=== PATIENT | male | born 1940 | race Caucasian/White ===

== ENCOUNTER → 2020-06-06 07:57 | Outpatient (CLI) | payer MEDICARE, SELFPAY ==
[2020-06-06] MEDS: COVID-19 VACC, Ad26(JANSSEN)/PF 0.5 ML IM (08:05)
== END ==
PROVIDERS: Visit Provider Internal Medicine
DX: Z23 Encounter for immunization (principal)
CPT/HCPCS: 0031A; 91303

== ENCOUNTER → 2021-10-16 15:22 | Outpatient (CLI) | payer MEDICARE, SELFPAY ==
[2021-10-16 16:03] LABS: Add Manual Diff / Slide Review NO; Basophils Absolute Auto 0 /uL (0-100); Basophils Percent Auto 0.7 % (0-2); Eosinophils Absolute Auto 200 /uL (0-450); Hematocrit 42.7 % (41-53); Hemoglobin 14.3 g/dL (13.5-17.5); Lymphocytes Absolute Auto 1800 /uL (1100-4500); Lymphocytes Percent Auto 32.2 % (25-40); Mean Corpuscular HGB Conc 33.6 % (30-36); Mean Corpuscular Hemoglobin 31.5 PG (26-34); Mean Corpuscular Volume 93.9 fL (80-100); Monocytes Absolute Auto 400 /uL (0-900); Monocytes Percent Auto 6.7 % (3-14); Neutrophils Absolute Auto 3200 /uL (1500-7000); Neutrophils Percent Auto 57.4 % (50-75); Platelet Count 232 X10^3/uL (150-400); Red Blood Cell Count 4.55 X10^6/uL (4.5-5.9); Red Cell Distribution Width 14.9 % (11.6-14.8); White Blood Cell Count 5.6 X10^3/uL (4.5-11.0)
[2021-10-16 16:10] LABS: Alanine Aminotransferase 24 IU/L (<50); Albumin 4.6 g/dL (3.5-5.0); Albumin Globulin Ratio 1.5 (1.0-2.8); Alkaline Phosphatase 77 U/L (38-126); Aspartate Aminotransferase 41 IU/L (17-59); BUN Creatinine Ratio 18.8 (6-22); Bilirubin Total 0.5 mg/dL (0.2-1.3); Blood Urea Nitrogen 18 mg/dL (9-20); Calcium 9.2 mg/dL (8.4-10.2); Carbon Dioxide 27 mmol/L (22-32); Chloride 104 mmol/L (98-107); Estimated Glomerular Filt Rate > 60 mL/min (>60); Globulin 3.1 g/dL (1.7-4.1); Glucose 92 mg/dL (80-110); HEMOLYSIS 19 (0-50); Potassium 4.6 mmol/L (3.4-5.1); Sodium 137 mmol/L (137-145); Total Protein 7.7 g/dL (6.3-8.2)
[2021-10-16 16:40] LABS: TSH w/ Reflex to FT4 1.76 uIU/mL (0.47-4.68)
== END ==
PROVIDERS: Referring Provider Pediatrics; Visit Provider Pediatrics
DX: I49.9 Cardiac arrhythmia, unspecified (principal); R25.2 Cramp and spasm
CPT/HCPCS: 36415; 80053; 83735; 84443; 85025; 93005; 93010

== ENCOUNTER → 2021-10-29 15:14 | Outpatient (CLI) | payer MEDICARE, SELFPAY ==
--- NOTE | 2021-11-12 08:53 | PM.CARDMON.1 ---
[employer] Report Referral & Results Date Patient Seen: 10/29/21 Requesting provider: Jose Manuel Izquierdo Indication: Cardiac arrhythmia Duration of monitoring (days): 7 Diary information: There were no patient events to review Data: Patient was continuously in atrial fibrillation during this study Minimum heart rate identified was 57 beats per minute at 23:07 on 10/29/2021 Maximum heart rate was 173 beats per minute at 12:02 on 10/30/2021 Approximately 1% of identified beats were ventricular ectopic in origin which would classify them as occasional There were no pauses of 3 seconds or longer identified on this study Impression: Patient continuously in atrial fibrillation with heart rate ranges as above
== END ==
PROVIDERS: Referring Provider Pediatrics; Visit Provider Pediatrics
DX: I49.9 Cardiac arrhythmia, unspecified (principal)
CPT/HCPCS: 93242; 93248

== ENCOUNTER → 2022-04-21 07:00 | Outpatient (CLI) | payer MEDICARE, SELFPAY ==
--- NOTE | 2022-04-21 07:02 | DI.ECHO.S_ITS ---
[place] +---------+ [facility] +---------+ : : [address] : : : : [id number] : : : : Phone: [phone]+ Echocardiogram Report + + :Name: GARTH LEBRON Study Date: 04/21/2022 Height: 70 in : :[facility] ReadingLocation: Weight: 180 lb : : Gender: Male BSA: 2.0 m2 : :: 1940 Age: 81 yrs BP: 122/90 mmHg: :Reason For Study: ATRIAL FIBRILLATION : :Ordering Physician: JUDY, : :SHAHID Performed By: Elena Mary : :Referring: FADI CORONEL : + + Interpretation Summary 1) Normal left ventricular size and thickness with mildly to moderately reduced systolic function (EF 40-45%). 2) Normal right ventricular size with mildly reduced function. 3) Mild aortic and mild mitral regurgitations present. 4) No prior Echo available for comparison. Procedure: A two-dimensional transthoracic echocardiogram with color flow and Doppler was performed. The study quality was technically adequate. There is no prior echocardiogram noted for this patient. The patient was in sinus rhythm with heart rates between 79-97 bpm during the exam. Left Ventricle: The left ventricle is normal in size and wall thickness. The ejection fraction is estimated to be 40-45%. There is mild to moderate global hypokinesis of the left ventricle. Diastolic function could not be accurately assessed due to atrial fibrillation. Right Ventricle: The right ventricle is normal size. Right ventricular systolic function is mildly reduced. Atria: The left atrium is moderately dilated. The right atrium is mild to moderately dilated. There is no Doppler evidence for an interatrial shunt. Mitral Valve: The mitral valve is normal in structure and function. There is mild mitral regurgitation. Aortic Valve: The aortic valve is trileaflet. The aortic valve opens well. There is no aortic valve stenosis. There is mild aortic regurgitation. Tricuspid Valve: The tricuspid valve is normal in structure and function. There is mild tricuspid regurgitation. The right ventricular systolic pressure is estimated to be at least 28 mmHg based on an estimated right atrial pressure of 8 mm Hg. Pulmonic Valve: The pulmonic valve leaflets are thin and pliable; valve motion is normal. There is trace pulmonic regurgitation. Great Vessels: The aortic root is normal size. The ascending aorta is at the upper limits of normal in size. The IVC is dilated (diameter is greater than 2.1 cm) yet it collapses greater than 50% with a sniff. This suggests a right atrial pressure of 8 mm Hg. Pericardium/ Pleura There is no pericardial effusion. There is no pleural effusion. MMode/2D Measurements & Calculations LVIDd: 4.6 cm LVOT diam: 2.0 cm LVIDs: 3.4 cm Ao root diam: 3.8 cm FS: 26.8 % asc Aorta Diam: 3.7 cm IVSd: 0.75 cm Ao Arch Diam (Prox Trans): 3.5 cm LVPWd: 0.96 cm LV goel. diameter/BSA (cm/m^2): 2.3 LV sys. diameter/BSA (cm/m^2): 1.7 LA A2 area: 24.0 cm2 RA long axis: 7.1 cm LA A4 area: 27.8 cm2 RA area: 26.6 cm2 LA length (vol): 6.5 cm RA vol: 84.9 ml LA vol: 87.1 ml RA : 42.5 ml/m2 LA vol index: 43.7 ml/m2 IVC diam: 2.2 cm RVD1 (basal): 3.8 cm RVD2 (mid): 2.8 cm TAPSE: 2.1 cm Doppler Measurements & Calculations Ao V2 max: 84.2 cm/sec LVOT Max Cirilo: 86.8 cm/sec Ao V2 mean: 65.2 cm/sec LV V1 max P.0 mmHg Ao max P.8 mmHg LV V1 VTI: 15.8 cm Ao mean P.8 mmHg PIOTR(I,D): 2.8 cm2 Ao V2 VTI: 17.1 cm PIOTR(V,D): 3.2 cm2 sev ratio: 0.92 PIOTR indexed to BSA (cm^2/m^2): 1.4 Med Peak E' Cirilo: 10.7 cm/sec TR max cirilo: 225.5 cm/sec Lat Peak E' Cirilo: 12.1 cm/sec TR max P.3 mmHg PA V2 max: 77.9 cm/sec PA V2 mean: 51.8 cm/sec PA mean P.2 mmHg PA pr(Accel): 46.5 mmHg SV(LVOT): 48.6 ml Reading Physician:10:08 AM
== END ==
PROVIDERS: PCP Family Medicine; Referring Provider Internal Medicine Cardiovascular Disease; Visit Provider Internal Medicine Cardiovascular Disease
DX: I08.3 Combined rheumatic disorders of mitral, aortic and tricuspid valves (principal); I48.19 Other persistent atrial fibrillation
CPT/HCPCS: 93306

== ENCOUNTER → 2022-05-28 14:29 | Outpatient (CLI) | payer MEDICARE, SELFPAY ==
[2022-05-28 15:18] LABS: Add Manual Diff / Slide Review NO; Basophils Absolute Auto 0 /uL (0-100); Basophils Percent Auto 0.7 % (0-2); Eosinophils Absolute Auto 100 /uL (0-450); Eosinophils Percent Auto 1.8 % (2-4); Hematocrit 40.7 % (41-53); Hemoglobin 13.7 g/dL (13.5-17.5); Lymphocytes Absolute Auto 1900 /uL (1100-4500); Lymphocytes Percent Auto 28.4 % (25-40); Mean Corpuscular HGB Conc 33.7 % (30-36); Mean Corpuscular Volume 92.1 fL (80-100); Monocytes Absolute Auto 600 /uL (0-900); Monocytes Percent Auto 9.3 % (3-14); Neutrophils Absolute Auto 4000 /uL (1500-7000); Neutrophils Percent Auto 59.8 % (50-75); Platelet Count 333 X10^3/uL (150-400); Red Blood Cell Count 4.43 X10^6/uL (4.5-5.9); Red Cell Distribution Width 14.1 % (11.6-14.8); White Blood Cell Count 6.7 X10^3/uL (4.5-11.0)
== END ==
PROVIDERS: PCP Family Medicine; Referring Provider Internal Medicine Cardiovascular Disease; Visit Provider Internal Medicine Cardiovascular Disease
DX: I48.19 Other persistent atrial fibrillation (principal)
CPT/HCPCS: 36415; 85025

== ENCOUNTER 2022-09-26 13:06 | Emergency (ER) | payer MEDICARE, SELFPAY ==
[2022-09-26] VITALS (17 sets, daily range): BP systolic 103–147; BP diastolic 61–82; PULSE 97–125; RESP 16–31; TEMP 36.9; O2SAT 98–99; BMI 23.8
[2022-09-26 14:07] LABS: Add Manual Diff / Slide Review NO; Basophils Absolute Auto 0 /uL (0-100); Basophils Percent Auto 0.4 % (0-2); Eosinophils Absolute Auto 0 /uL (0-450); Eosinophils Percent Auto 0.2 % (2-4); Hematocrit 35.9 % (41-53); Hemoglobin 12.2 g/dL (13.5-17.5); Lymphocytes Absolute Auto 800 /uL (1100-4500); Lymphocytes Percent Auto 7.9 % (25-40); Mean Corpuscular Volume 82.4 fL (80-100); Monocytes Absolute Auto 500 /uL (0-900); Monocytes Percent Auto 5.4 % (3-14); Neutrophils Absolute Auto 8200 /uL (1500-7000); Neutrophils Percent Auto 86.1 % (50-75); Platelet Count 414 X10^3/uL (150-400); Red Blood Cell Count 4.36 X10^6/uL (4.5-5.9); Red Cell Distribution Width 16.4 % (11.6-14.8); White Blood Cell Count 9.5 X10^3/uL (4.5-11.0)
--- NOTE | 2022-09-26 14:07 | DI.US.S_ITS ---
PROCEDURE: US ABDOMEN LIMITED INDICATIONS: RUQ PAIN; JAUNDICE TECHNIQUE: Real-time scanning was performed of the abdominal and retroperitoneal organs, with image documentation. COMPARISON: Same-day CT. FINDINGS: Liver: Live mass along the gallbladder fossa measuring 4.5 x 3.6 x 4.6 cm. This may be rising from the liver or gallbladder. Gallbladder: Mass, as above. Biliary ducts: Intrahepatic and extrahepatic biliary dilation. Numerous stones within the common bile duct. Pancreas: Ductal dilation measuring 4 mm. IMPRESSION: Liver mass versus gallbladder mass measuring 4.5 x 3.6 x 4.6 cm. Choledocholithiasis and intrahepatic and extrahepatic biliary dilation. Dictated by: Doug Fitch M.D. on 09/26/2022 at 16:10 Approved by: Doug Fitch M.D. on 09/26/2022 at 16:13
--- NOTE | 2022-09-26 14:10 | ED.GENADULT ---
HPI - General Adult <Cirilo Mendoza DO - Last Filed: 09/27/22 08:21> General Chief complaint: Abdominal Pain Stated complaint: abd pain, gastro issues Time Seen by Provider: 09/26/22 13:31 Source: patient and other Mode of arrival: Wheelchair History of Present Illness HPI narrative: Patient is an 82-year-old male has a history of atrial fibrillation. Is on metoprolol rivaroxaban. He is here with a friend of his. Over the past couple days he has had generalized abdominal pain and nausea. No vomiting. He is also had multiple bowel movements 1 of which was diarrhea. No recent travel. He currently is not having any nausea. No chest pain or shortness of breath. His friend states that over the past couple days she is noticed increasing discoloration to his face equivalent with jaundice. It was much worse this morning. No prior abdominal surgeries. No prior history of liver kidney issues. Went to the walk-in clinic and was sent to the emergency department for further evaluation. Related Data Home Medications Medication Instructions Recorded Confirmed rivaroxaban 20 mg tablet (Xarelto) 20 mg PO DAILY 04/24/22 09/26/22 metoprolol succinate 100 mg 100 mg PO DAILY 09/26/22 09/26/22 tablet,extended release 24 hr Allergies Allergy/AdvReac Type Severity Reaction Status Date / Time grass pollen AdvReac Mild Verified 09/26/22 13:39 mold AdvReac Mild eye Verified 09/26/22 13:39 irritation tree and shrub pollen AdvReac Mild Verified 09/26/22 13:39 Review of Systems <Cirilo Mendoza DO - Last Filed: 09/27/22 08:21> Review of Systems ROS Unobtainable: All systems reviewed & are unremarkable except as noted in HPI and below Gastrointestinal Gastrointestinal: Reports system reviewed and no additional complaints, except as documented Patient History <Cirilo Mendoza DO - Last Filed: 09/27/22 08:21> Medical History Acne Allergies (~1949) Benign prostatic hyperplasia Cardiac rhythm disturbance (~2021) Chicken pox (~1951) Chronic atrial fibrillation Diverticulosis Hemorrhoid (~2019) Leg cramps Measles (~1951) Migraines Mumps (~1951) Plantar warts (~1969) Rubella (~1951) Wears glasses Surgical History Anesthesia History of inguinal hernia repair History of tonsillectomy (~1950) Family History Father Cancer History of heart disease Mother Sepsis Pneumonia Grandfather Influenza Social History Smoking Status: Never smoker Smoking Status: Never smoker Substance Use Type: does not use Exam <DO Jacob Tierney Last Filed: 09/27/22 08:21> Initial Vital Signs Initial Vital Signs: Vital Signs Temperature 98.5 F 09/26/22 13:40 Pulse Rate 112 H 09/26/22 13:40 Respiratory Rate 16 09/26/22 13:40 Blood Pressure 120/76 09/26/22 13:40 Pulse Oximetry 98 09/26/22 13:40 Oxygen Delivery Method Room Air 09/26/22 13:40 Const General: cooperative, comfortable and No ill appearing HENAZ Head: normal to inspection and normocephalic Eyes Other: Scleral icterus Resp Effort & Inspection: normal respiratory effort Auscultation: clear to auscultation bilaterally Cardio Rate: tachycardic Rhythm: abnormal rhythm irregularly irregular GI Inspection: normal to inspection and non-distended Palpation: soft and No tender Skin General: no rashes or lesions noted and jaundice Neuro General: patient alert, patient awake, patient oriented x3 and moves all extremities Cognition: normal cognition Speech: speech normal Extrem General: normal to inspection and capillary refill normal <DO Jacob Brown Last Filed: 09/27/22 06:36> Initial Vital Signs Initial Vital Signs: Vital Signs Temperature 98.5 F 09/26/22 13:40 Pulse Rate 112 H 09/26/22 13:40 Respiratory Rate 16 09/26/22 13:40 Blood Pressure 120/76 09/26/22 13:40 Pulse Oximetry 98 09/26/22 13:40 Oxygen Delivery Method Room Air 09/26/22 13:40 Course <DO Jacob Tierney Last Filed: 09/27/22 08:21> Orders Ordered: ED Orders 09/27/22 03:15 Hemoglobin and Hematocrit DAILY PTT Partial Thromboplastin Guido Q6H Platelet Count DAILY 09/27/22 07:30 PTT Partial Thromboplastin Guido Q6H 09/27/22 14:00 PTT Partial Thromboplastin Guido Q6H 09/28/22 05:00 Hemoglobin and Hematocrit DAILY Platelet Count DAILY Sodium Chloride (Normal Saline 0.9%) 1,000 mls @ 125 mls/hr IV CONT ANGLE Last Admin: 09/27/22 04:48 Dose: 125 mls/hr Documented By: Infusion: 09/27/22 04:48 Dose: 125 mls/hr Documented By: Admin: 09/26/22 21:03 Dose: 125 mls/hr Documented By: MAISHA Heparin Sodium/Dextrose (Heparin Drip) 25,000 unit in 500 mls @ 18.049 mls/hr IV CONT ANGLE; Protocol Last Titration: 09/27/22 08:10 Dose: 9.31 units/kg/hr, 14 mls/hr Documented By: ALBERTO Co-signed By: YU Titration: 09/27/22 04:42 Dose: 7.98 units/kg/hr, 12 mls/hr Documented By: STEPHANIE Co-signed By: MAISHA Titration: 09/27/22 03:40 Dose: 0 units/kg/hr, 0 mls/hr Documented By: STEPHANIE Co-signed By: MAISHA Admin: 09/26/22 21:05 Dose: 12 units/kg/hr, 18.049 mls/hr Documented By: MAISHA Co-signed By: Metoprolol Succinate (Metoprolol Er 50 Mg Tablet) 100 mg PO DAILY [facility] Naloxone HCl (Naloxone 0.4 Mg/Ml Vial) 0.2 mg IV Q2MIN PRN PRN Reason: Opiate Reversal Ondansetron HCl (Ondansetron 4 Mg Odt) 4 mg PO NOW PRN PRN Reason: Nausea And Vomiting Ondansetron HCl (Ondansetron 4 Mg/2 Ml Inj) 4 mg IV NOW PRN PRN Reason: Nausea And Vomiting Discontinued Medications Heparin Sodium (Porcine) (Heparin 5,000 Unit/Ml Vial) 3,000 unit IV NOW ONE Stop: 09/27/22 08:06 Last Admin: 09/27/22 08:08 Dose: 3,000 unit Documented By: ALBERTO Metoprolol Succinate (Metoprolol Er 50 Mg Tablet) 100 mg PO NOW ONE Stop: 09/26/22 17:41 Last Admin: 09/26/22 17:55 Dose: 100 mg Documented By: WICHO Metoprolol Tartrate (Metoprolol Ir 25 Mg Tablet) 50 mg PO NOW ONE Stop: 09/27/22 05:25 Last Admin: 09/27/22 05:31 Dose: 50 mg Documented By: STEPHANIE Metoprolol Tartrate (Metoprolol Tartrate 5 Mg/5 Ml Inj) 5 mg IV NOW ONE Stop: 09/27/22 06:26 Last Admin: 09/27/22 06:32 Dose: 5 mg Documented By: STEPHANIE Vital Signs Vital signs: Vital Signs - 8 hr 09/27/22 02:41 09/27/22 02:41 09/27/22 03:00 Pulse Rate 98 H 109 H Respiratory Rate 20 24 Blood Pressure 117/76 Pulse Oximetry 98 98 Oxygen Delivery Method 09/27/22 03:30 09/27/22 03:30 09/27/22 04:00 Pulse Rate 112 H Respiratory Rate 23 Blood Pressure 112/79 115/72 Pulse Oximetry 97 Oxygen Delivery Method 09/27/22 04:00 09/27/22 04:30 09/27/22 04:30 Pulse Rate 105 H 103 H Respiratory Rate 22 23 Blood Pressure 113/67 Pulse Oximetry 95 95 Oxygen Delivery Method 09/27/22 05:00 09/27/22 05:01 09/27/22 05:30 Pulse Rate 110 H 129 H Respiratory Rate 20 20 Blood Pressure 107/79 Pulse Oximetry 96 97 Oxygen Delivery Method 09/27/22 05:31 09/27/22 05:31 09/27/22 06:12 Pulse Rate 129 H 141 H Respiratory Rate 20 27 H Blood Pressure 157/75 H Pulse Oximetry 98 98 Oxygen Delivery Method Room Air 09/27/22 06:12 09/27/22 06:30 09/27/22 06:30 Pulse Rate 111 H Respiratory Rate 24 Blood Pressure 115/71 103/72 Pulse Oximetry 96 Oxygen Delivery Method 09/27/22 06:36 09/27/22 06:36 09/27/22 06:39 Pulse Rate 111 H 112 H Respiratory Rate 20 18 Blood Pressure 113/73 Pulse Oximetry 96 96 Oxygen Delivery Method 09/27/22 06:39 09/27/22 06:42 09/27/22 06:42 Pulse Rate 100 H Respiratory Rate 20 Blood Pressure 115/78 110/74 Pulse Oximetry 96 Oxygen Delivery Method Room Air 09/27/22 06:45 09/27/22 06:45 09/27/22 06:48 Pulse Rate 104 H 99 H Respiratory Rate 20 20 Blood Pressure 110/68 Pulse Oximetry 96 94 Oxygen Delivery Method 09/27/22 06:48 09/27/22 06:51 09/27/22 06:51 Pulse Rate 100 H Respiratory Rate 22 Blood Pressure 107/73 113/72 Pulse Oximetry 96 Oxygen Delivery Method 09/27/22 07:00 09/27/22 07:15 09/27/22 07:15 Pulse Rate 97 H 94 H Respiratory Rate 19 21 Blood Pressure 110/70 Pulse Oximetry 97 98 Oxygen Delivery Method 09/27/22 07:30 09/27/22 07:30 09/27/22 07:45 Pulse Rate 94 H 89 Respiratory Rate 28 H 20 Blood Pressure 115/73 Pulse Oximetry 98 96 Oxygen Delivery Method 09/27/22 07:45 09/27/22 08:00 09/27/22 08:00 Pulse Rate 91 H Respiratory Rate 23 Blood Pressure 110/72 119/75 Pulse Oximetry 98 Oxygen Delivery Method 09/27/22 08:15 09/27/22 08:15 Pulse Rate 97 H Respiratory Rate 25 H Blood Pressure 116/64 Pulse Oximetry 98 Oxygen Delivery Method <Marlon Mahajan, DO - Last Filed: 09/27/22 06:36> Orders Ordered: ED Orders 09/27/22 03:15 Hemoglobin and Hematocrit DAILY PTT Partial Thromboplastin Guido Q6H Platelet Count DAILY 09/27/22 07:30 PTT Partial Thromboplastin Guido Q6H 09/27/22 14:00 PTT Partial Thromboplastin Guido Q6H 09/28/22 05:00 Hemoglobin and Hematocrit DAILY Platelet Count DAILY Sodium Chloride (Normal Saline 0.9%) 1,000 mls @ 125 mls/hr IV CONT ANGLE Last Admin: 09/27/22 04:48 Dose: 125 mls/hr Documented By: Infusion: 09/27/22 04:48 Dose: 125 mls/hr Documented By: Admin: 09/26/22 21:03 Dose: 125 mls/hr Documented By: MAISHA Heparin Sodium/Dextrose (Heparin Drip) 25,000 unit in 500 mls @ 18.049 mls/hr IV CONT ANGLE; Protocol Last Titration: 09/27/22 08:10 Dose: 9.31 units/kg/hr, 14 mls/hr Documented By: ALBERTO Co-signed By: YU Titration: 09/27/22 04:42 Dose: 7.98 units/kg/hr, 12 mls/hr Documented By: STEPHANIE Co-signed By: MAISHA Titration: 09/27/22 03:40 Dose: 0 units/kg/hr, 0 mls/hr Documented By: STEPHANIE Co-signed By: MAISHA Admin: 09/26/22 21:05 Dose: 12 units/kg/hr, 18.049 mls/hr Documented By: MAISHA Co-signed By: Metoprolol Succinate (Metoprolol Er 50 Mg Tablet) 100 mg PO DAILY ANGLE Naloxone HCl (Naloxone 0.4 Mg/Ml Vial) 0.2 mg IV Q2MIN PRN PRN Reason: Opiate Reversal Ondansetron HCl (Ondansetron 4 Mg Odt) 4 mg PO NOW PRN PRN Reason: Nausea And Vomiting Ondansetron HCl (Ondansetron 4 Mg/2 Ml Inj) 4 mg IV NOW PRN PRN Reason: Nausea And Vomiting Discontinued Medications Heparin Sodium (Porcine) (Heparin 5,000 Unit/Ml Vial) 3,000 unit IV NOW ONE Stop: 09/27/22 08:06 Last Admin: 09/27/22 08:08 Dose: 3,000 unit Documented By: ALBERTO Metoprolol Succinate (Metoprolol Er 50 Mg Tablet) 100 mg PO NOW ONE Stop: 09/26/22 17:41 Last Admin: 09/26/22 17:55 Dose: 100 mg Documented By: WICHO Metoprolol Tartrate (Metoprolol Ir 25 Mg Tablet) 50 mg PO NOW ONE Stop: 09/27/22 05:25 Last Admin: 09/27/22 05:31 Dose: 50 mg Documented By: STEPHANIE Metoprolol Tartrate (Metoprolol Tartrate 5 Mg/5 Ml Inj) 5 mg IV NOW ONE Stop: 09/27/22 06:26 Last Admin: 09/27/22 06:32 Dose: 5 mg Documented By: STEPHANIE Vital Signs Vital signs: Vital Signs - 8 hr 09/27/22 02:41 09/27/22 02:41 09/27/22 03:00 Pulse Rate 98 H 109 H Respiratory Rate 20 24 Blood Pressure 117/76 Pulse Oximetry 98 98 Oxygen Delivery Method 09/27/22 03:30 09/27/22 03:30 09/27/22 04:00 Pulse Rate 112 H Respiratory Rate 23 Blood Pressure 112/79 115/72 Pulse Oximetry 97 Oxygen Delivery Method 09/27/22 04:00 09/27/22 04:30 09/27/22 04:30 Pulse Rate 105 H 103 H Respiratory Rate 22 23 Blood Pressure 113/67 Pulse Oximetry 95 95 Oxygen Delivery Method 09/27/22 05:00 09/27/22 05:01 09/27/22 05:30 Pulse Rate 110 H 129 H Respiratory Rate 20 20 Blood Pressure 107/79 Pulse Oximetry 96 97 Oxygen Delivery Method 09/27/22 05:31 09/27/22 05:31 09/27/22 06:12 Pulse Rate 129 H 141 H Respiratory Rate 20 27 H Blood Pressure 157/75 H Pulse Oximetry 98 98 Oxygen Delivery Method Room Air 09/27/22 06:12 09/27/22 06:30 09/27/22 06:30 Pulse Rate 111 H Respiratory Rate 24 Blood Pressure 115/71 103/72 Pulse Oximetry 96 Oxygen Delivery Method 09/27/22 06:36 09/27/22 06:36 09/27/22 06:39 Pulse Rate 111 H 112 H Respiratory Rate 20 18 Blood Pressure 113/73 Pulse Oximetry 96 96 Oxygen Delivery Method 09/27/22 06:39 09/27/22 06:42 09/27/22 06:42 Pulse Rate 100 H Respiratory Rate 20 Blood Pressure 115/78 110/74 Pulse Oximetry 96 Oxygen Delivery Method Room Air 09/27/22 06:45 09/27/22 06:45 09/27/22 06:48 Pulse Rate 104 H 99 H Respiratory Rate 20 20 Blood Pressure 110/68 Pulse Oximetry 96 94 Oxygen Delivery Method 09/27/22 06:48 09/27/22 06:51 09/27/22 06:51 Pulse Rate 100 H Respiratory Rate 22 Blood Pressure 107/73 113/72 Pulse Oximetry 96 Oxygen Delivery Method 09/27/22 07:00 09/27/22 07:15 09/27/22 07:15 Pulse Rate 97 H 94 H Respiratory Rate 19 21 Blood Pressure 110/70 Pulse Oximetry 97 98 Oxygen Delivery Method 09/27/22 07:30 09/27/22 07:30 09/27/22 07:45 Pulse Rate 94 H 89 Respiratory Rate 28 H 20 Blood Pressure 115/73 Pulse Oximetry 98 96 Oxygen Delivery Method 09/27/22 07:45 09/27/22 08:00 09/27/22 08:00 Pulse Rate 91 H Respiratory Rate 23 Blood Pressure 110/72 119/75 Pulse Oximetry 98 Oxygen Delivery Method 09/27/22 08:15 09/27/22 08:15 Pulse Rate 97 H Respiratory Rate 25 H Blood Pressure 116/64 Pulse Oximetry 98 Oxygen Delivery Method Medical Decision Making <Cirilo Mendoza DO - Last Filed: 09/27/22 08:21> Lab Data Lab results reviewed: Yes I reviewed the patient's lab results. 09/27/22 03:15 09/26/22 13:55 Labs: Lab Results 09/26/22 09/26/22 09/26/22 Range/Units 13:55 13:55 13:55 WBC 9.5 (4.5-11.0) X10^3/uL RBC 4.36 L (4.5-5.9) X10^6/uL Hgb 12.2 L (13.5-17.5) g/dL Hct 35.9 L (41-53) % MCV 82.4 (80-100) fL MCH 28.0 (26-34) PG MCHC 34.0 (30-36) % RDW 16.4 H (11.6-14.8) % Plt Count 414 H (150-400) X10^3/uL Neut % (Auto) 86.1 H (50-75) % Lymph % (Auto) 7.9 L (25-40) % Clinch % (Auto) 5.4 (3-14) % Eos % (Auto) 0.2 L (2-4) % Baso % (Auto) 0.4 (0-2) % Neut # (Auto) 8200 H (0804-2209) /uL Lymph # (Auto) 800 L (5083-1315) /uL Clinch # (Auto) 500 (0-900) /uL Eos # (Auto) 0 (0-450) /uL Baso # (Auto) 0 (0-100) /uL PT 16.6 H (10.1-12.7) SECONDS INR 1.4 H (0.9-1.3) APTT 31 (26-36) SECONDS Sodium 131 L (137-145) mmol/L Potassium 4.0 (3.4-5.1) mmol/L Chloride 95 L (98-107) mmol/L Carbon Dioxide 24 (22-32) mmol/L BUN 19 (9-20) mg/dL Creatinine 0.82 (0.66-1.25) mg/dL Estimated GFR > 60 (>60) mL/min BUN/Creatinine Ratio 23.2 H (6-22) Glucose 92 (80-110) mg/dL Calcium 9.7 (8.4-10.2) mg/dL Total Bilirubin 8.5 H (0.2-1.3) mg/dL Conjugated Bilirubin 5.0 H (0.0-0.3) md/dL Unconjugated Bilirubin 1.1 (0.0-1.1) mg/dL AST 236 H (17-59) IU/L ALT 298 H (<50) IU/L Alkaline Phosphatase 615 H (38-126) U/L Total Protein 8.4 H (6.3-8.2) g/dL Albumin 4.1 (3.5-5.0) g/dL Globulin 4.3 H (1.7-4.1) g/dL Albumin/Globulin Ratio 1.0 (1.0-2.8) Urine Color Urine Appearance Urine pH (4.5-8.0) Ur Specific [place] (1.000-1.035) Urine Protein (Negative) Urine Glucose (UA) (Negative) g/dL Urine Ketones (NEGATIVE) Urine Occult Blood (Negative) Urine Nitrate (Negative) Urine Bilirubin (NEGATIVE) Ur Bilirubin Confirm (Negative) Urine Urobilinogen (0.2) E.U./dL Ur Leukocyte Esterase (NEGATIVE) Urine RBC (0-5/HPF) Urine WBC (0-5/HPF) Ur Squamous Epith Cells (0-5/HPF) Ur Transition Epith Cell (0-5/HPF) Ur Renal Epithelial Cell (0-1/HPF) Amorphous Sediment Urine Bacteria (None) Hyaline Casts (None) Urine Mucus (Negative) Ur Culture Indicated? Acetaminophen (10-30) ug/mL Ethyl Alcohol ( - 10) mg/dL Hepatitis A IgM Ab (Negative) Hep Bs Antigen (Negative) Hep B Core IgM Ab (Negative) Hepatitis C Antibody (Non Reactive) Hep C Ab Signal/Cutoff (.) 09/26/22 09/26/22 09/26/22 Range/Units 13:55 14:25 14:43 WBC (4.5-11.0) X10^3/uL RBC (4.5-5.9) X10^6/uL Hgb (13.5-17.5) g/dL Hct (41-53) % MCV (80-100) fL MCH (26-34) PG MCHC (30-36) % RDW (11.6-14.8) % Plt Count (150-400) X10^3/uL Neut % (Auto) (50-75) % Lymph % (Auto) (25-40) % Clinch % (Auto) (3-14) % Eos % (Auto) (2-4) % Baso % (Auto) (0-2) % Neut # (Auto) (1040-7722) /uL Lymph # (Auto) (7245-7470) /uL Clinch # (Auto) (0-900) /uL Eos # (Auto) (0-450) /uL Baso # (Auto) (0-100) /uL PT (10.1-12.7) SECONDS INR (0.9-1.3) APTT (26-36) SECONDS Sodium (137-145) mmol/L Potassium (3.4-5.1) mmol/L Chloride (98-107) mmol/L Carbon Dioxide (22-32) mmol/L BUN (9-20) mg/dL Creatinine (0.66-1.25) mg/dL Estimated GFR (>60) mL/min BUN/Creatinine Ratio (6-22) Glucose (80-110) mg/dL Calcium (8.4-10.2) mg/dL Total Bilirubin (0.2-1.3) mg/dL Conjugated Bilirubin (0.0-0.3) md/dL Unconjugated Bilirubin (0.0-1.1) mg/dL AST (17-59) IU/L ALT (<50) IU/L Alkaline Phosphatase (38-126) U/L Total Protein (6.3-8.2) g/dL Albumin (3.5-5.0) g/dL Globulin (1.7-4.1) g/dL Albumin/Globulin Ratio (1.0-2.8) Urine Color Brown Urine Appearance Cloudy Urine pH 5.5 (4.5-8.0) Ur Specific [place] 1.025 (1.000-1.035) Urine Protein 2+ H (Negative) Urine Glucose (UA) Trace H (Negative) g/dL Urine Ketones 1+ H (NEGATIVE) Urine Occult Blood Trace-intact (Negative) Urine Nitrate Positive H (Negative) Urine Bilirubin 3+ H (NEGATIVE) Ur Bilirubin Confirm Positive H (Negative) Urine Urobilinogen 2.0 H (0.2) E.U./dL Ur Leukocyte Esterase Negative (NEGATIVE) Urine RBC 1-5/hpf (0-5/HPF) Urine WBC 5-10/hpf H (0-5/HPF) Ur Squamous Epith Cells 5-10 /hpf H (0-5/HPF) Ur Transition Epith Cell 1-5/hpf (0-5/HPF) Ur Renal Epithelial Cell 1-5/hpf H (0-1/HPF) Amorphous Sediment 1+ Urine Bacteria Few (2-10) H (None) Hyaline Casts 1-5/lpf (None) Urine Mucus 3+ H (Negative) Ur Culture Indicated? Specimen cultured Acetaminophen < 10 (10-30) ug/mL Ethyl Alcohol < 10 ( - 10) mg/dL Hepatitis A IgM Ab Negative (Negative) Hep Bs Antigen Negative (Negative) Hep B Core IgM Ab Negative (Negative) Hepatitis C Antibody Non reactive (Non Reactive) Hep C Ab Signal/Cutoff Comment (.) 09/27/22 09/27/22 09/27/22 Range/Units 03:15 03:15 07:30 WBC (4.5-11.0) X10^3/uL RBC (4.5-5.9) X10^6/uL Hgb 11.4 L (13.5-17.5) g/dL Hct 34.3 L (41-53) % MCV (80-100) fL MCH (26-34) PG MCHC (30-36) % RDW (11.6-14.8) % Plt Count 373 (150-400) X10^3/uL Neut % (Auto) (50-75) % Lymph % (Auto) (25-40) % Clinch % (Auto) (3-14) % Eos % (Auto) (2-4) % Baso % (Auto) (0-2) % Neut # (Auto) (6377-1297) /uL Lymph # (Auto) (8442-3461) /uL Clinch # (Auto) (0-900) /uL Eos # (Auto) (0-450) /uL Baso # (Auto) (0-100) /uL PT (10.1-12.7) SECONDS INR (0.9-1.3) APTT 211 H* D 33 D (26-36) SECONDS Sodium (137-145) mmol/L Potassium (3.4-5.1) mmol/L Chloride (98-107) mmol/L Carbon Dioxide (22-32) mmol/L BUN (9-20) mg/dL Creatinine (0.66-1.25) mg/dL Estimated GFR (>60) mL/min BUN/Creatinine Ratio (6-22) Glucose (80-110) mg/dL Calcium (8.4-10.2) mg/dL Total Bilirubin (0.2-1.3) mg/dL Conjugated Bilirubin (0.0-0.3) md/dL Unconjugated Bilirubin (0.0-1.1) mg/dL AST (17-59) IU/L ALT (<50) IU/L Alkaline Phosphatase (38-126) U/L Total Protein (6.3-8.2) g/dL Albumin (3.5-5.0) g/dL Globulin (1.7-4.1) g/dL Albumin/Globulin Ratio (1.0-2.8) Urine Color Urine Appearance Urine pH (4.5-8.0) Ur Specific [place] (1.000-1.035) Urine Protein (Negative) Urine Glucose (UA) (Negative) g/dL Urine Ketones (NEGATIVE) Urine Occult Blood (Negative) Urine Nitrate (Negative) Urine Bilirubin (NEGATIVE) Ur Bilirubin Confirm (Negative) Urine Urobilinogen (0.2) E.U./dL Ur Leukocyte Esterase (NEGATIVE) Urine RBC (0-5/HPF) Urine WBC (0-5/HPF) Ur Squamous Epith Cells (0-5/HPF) Ur Transition Epith Cell (0-5/HPF) Ur Renal Epithelial Cell (0-1/HPF) Amorphous Sediment Urine Bacteria (None) Hyaline Casts (None) Urine Mucus (Negative) Ur Culture Indicated? Acetaminophen (10-30) ug/mL Ethyl Alcohol ( - 10) mg/dL Hepatitis A IgM Ab (Negative) Hep Bs Antigen (Negative) Hep B Core IgM Ab (Negative) Hepatitis C Antibody (Non Reactive) Hep C Ab Signal/Cutoff (.) Imaging Data US - abdomen: Radiologist's Impression: PROCEDURE:? US ABDOMEN LIMITED ? INDICATIONS:? RUQ PAIN; JAUNDICE ? TECHNIQUE:? Real-time scanning was performed of the abdominal and retroperitoneal organs, with image documentation.? ? COMPARISON:? Same-day CT. ? FINDINGS:? ? Liver:? Live mass along the gallbladder fossa measuring 4.5 x 3.6 x 4.6 cm.? This may be rising from the liver or gallbladder. ? Gallbladder:? Mass, as above. ? Biliary ducts:? Intrahepatic and extrahepatic biliary dilation.? Numerous stones within the common bile duct. ? Pancreas:? Ductal dilation measuring 4 mm. ? ? ? IMPRESSION:? Liver mass versus gallbladder mass measuring 4.5 x 3.6 x 4.6 cm. ? Choledocholithiasis and intrahepatic and extrahepatic biliary dilation. CT scan - abdomen/pelvis: Radiologist's Impression: PROCEDURE:? CT ABDOMEN PELVIS W CON ? INDICATIONS:? possible liver abscess seen on RUQ US ? TECHNIQUE:? After the administration of intravenous contrast, axial sections acquired from the lung bases to the pubic symphysis.? Coronal and sagittal reformats were performed.? For radiation dose reduction, the following was used:? automated exposure control, adjustment of mA and/or kV according to patient size.? ? COMPARISON:? None. ? FINDINGS: Image quality:? Excellent.? ? Lung bases:? Lung bases are clear.? Heart size is normal. ? Solid organs:? Liver/biliary:? 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 The bile ducts are severely dilated with the common bile duct measuring 1.8 cm in diameter.? There is debris or tumor in the common bile duct near the ampulla.? The portal vein and hepatic veins are patent. Pancreas:? The mass appears to involve the pancreatic head.? The pancreatic body and tail have a normal appearance.? Mild pancreatic ductal dilatation.? Spleen: Normal size. There are no masses. Adrenals: No hypertrophy or nodules. Kidneys: No obstructive calculus or hydronephrosis.? No solid mass.? 4 centimeter cyst of the inferior pole of the left kidney.? ? Peritoneum and bowel:? The distal esophagus is normal.? The stomach is normal.? The 2nd portion of the duodenum is likely partially encased by the tumor described above.? The small bowel has a normal caliber and appearance. The large bowel has diverticulosis without evidence of diverticulitis.? No free fluid or air.? ? Nodes and vessels:? No retroperitoneal or mesenteric adenopathy by size criteria.? The aorta has atherosclerosis with no aneurysmal dilatation.? ? Miscellaneous:? Fat containing inguinal hernias bilaterally. ? PELVIS:? Genitourinary:? The bladder has no wall thickening or mass. No bladder calcifications. ? Bones:? No suspicious bony lesions.? No vertebral body compression fractures.? ? IMPRESSION:? 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 No distal metastatic disease is identified. ECG Data Attestation: I personally reviewed and interpreted this ECG as follows: Interpretation: Atrial fib/flutter Ventricular rate [address] T wave changes MDM Narrative Medical decision making narrative: Patient has minimal abdominal pain today. He is jaundiced. His LFTs are elevated. Bilirubin is elevated. Does not have a leukocytosis. 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 He does have a nitrite positive urine but has no UTI symptoms. Given his other symptoms today we will wait for urine culture before treating with any antibiotics. Patient does have a history of AFib. He was tachycardic today but not hypotensive. He is also on rivaroxaban. His last dose of rivaroxaban was yesterday (09/25/2022). He is also on metoprolol. He states that was just recently increased to 100 mg a day. He was given a dose of metoprolol however we will hold on his rivaroxaban. Waiting for call from GI to discuss further workup to include discharge home with a follow-up as an outpatient versus transfer for further evaluation such as stent placement. There currently no beds available at any facility in [facility]. Care turned over to Dr. Mahajan to follow-up and disposition. [1800] (Keyshawn) Patient received in sign out from [Kelly]. I have reviewed the clinical course and performed an independent history and physical exam. 0 - call from [facility] (Dr. Sierra). Discussed case. Recommend transfer, will likely need intervention. No ABX unless fever or elevated WBCs. Will defer heparin decision to medicine 1909 - call from [facility] (Dr. Newman). Discussed clinical course and agrees to accept patient in transfer. Recommends holding Xarelto. Addition of heparin. Pending bed availability Dr Mendoza: Resumed care of patient. Reviewed patient's overnight events. He has been accepted to [facility]. Patient is stable. Continues to be on heparin. Will transport were continued evaluation treatment. <Marlon Mahajan, DO - Last Filed: 09/27/22 06:36> Lab Data Labs: Lab Results 09/26/22 09/26/22 09/26/22 Range/Units 13:55 13:55 13:55 WBC 9.5 (4.5-11.0) X10^3/uL RBC 4.36 L (4.5-5.9) X10^6/uL Hgb 12.2 L (13.5-17.5) g/dL Hct 35.9 L (41-53) % MCV 82.4 (80-100) fL MCH 28.0 (26-34) PG MCHC 34.0 (30-36) % RDW 16.4 H (11.6-14.8) % Plt Count 414 H (150-400) X10^3/uL Neut % (Auto) 86.1 H (50-75) % Lymph % (Auto) 7.9 L (25-40) % Clinch % (Auto) 5.4 (3-14) % Eos % (Auto) 0.2 L (2-4) % Baso % (Auto) 0.4 (0-2) % Neut # (Auto) 8200 H (7169-8198) /uL Lymph # (Auto) 800 L (4402-4900) /uL Clinch # (Auto) 500 (0-900) /uL Eos # (Auto) 0 (0-450) /uL Baso # (Auto) 0 (0-100) /uL PT 16.6 H (10.1-12.7) SECONDS INR 1.4 H (0.9-1.3) APTT 31 (26-36) SECONDS Sodium 131 L (137-145) mmol/L Potassium 4.0 (3.4-5.1) mmol/L Chloride 95 L (98-107) mmol/L Carbon Dioxide 24 (22-32) mmol/L BUN 19 (9-20) mg/dL Creatinine 0.82 (0.66-1.25) mg/dL Estimated GFR > 60 (>60) mL/min BUN/Creatinine Ratio 23.2 H (6-22) Glucose 92 (80-110) mg/dL Calcium 9.7 (8.4-10.2) mg/dL Total Bilirubin 8.5 H (0.2-1.3) mg/dL Conjugated Bilirubin 5.0 H (0.0-0.3) md/dL Unconjugated Bilirubin 1.1 (0.0-1.1) mg/dL AST 236 H (17-59) IU/L ALT 298 H (<50) IU/L Alkaline Phosphatase 615 H (38-126) U/L Total Protein 8.4 H (6.3-8.2) g/dL Albumin 4.1 (3.5-5.0) g/dL Globulin 4.3 H (1.7-4.1) g/dL Albumin/Globulin Ratio 1.0 (1.0-2.8) Urine Color Urine Appearance Urine pH (4.5-8.0) Ur Specific [place] (1.000-1.035) Urine Protein (Negative) Urine Glucose (UA) (Negative) g/dL Urine Ketones (NEGATIVE) Urine Occult Blood (Negative) Urine Nitrate (Negative) Urine Bilirubin (NEGATIVE) Ur Bilirubin Confirm (Negative) Urine Urobilinogen (0.2) E.U./dL Ur Leukocyte Esterase (NEGATIVE) Urine RBC (0-5/HPF) Urine WBC (0-5/HPF) Ur Squamous Epith Cells (0-5/HPF) Ur Transition Epith Cell (0-5/HPF) Ur Renal Epithelial Cell (0-1/HPF) Amorphous Sediment Urine Bacteria (None) Hyaline Casts (None) Urine Mucus (Negative) Ur Culture Indicated? Acetaminophen (10-30) ug/mL Ethyl Alcohol ( - 10) mg/dL Hepatitis A IgM Ab (Negative) Hep Bs Antigen (Negative) Hep B Core IgM Ab (Negative) Hepatitis C Antibody (Non Reactive) Hep C Ab Signal/Cutoff (.) 09/26/22 09/26/22 09/26/22 Range/Units 13:55 14:25 14:43 WBC (4.5-11.0) X10^3/uL RBC (4.5-5.9) X10^6/uL Hgb (13.5-17.5) g/dL Hct (41-53) % MCV (80-100) fL MCH (26-34) PG MCHC (30-36) % RDW (11.6-14.8) % Plt Count (150-400) X10^3/uL Neut % (Auto) (50-75) % Lymph % (Auto) (25-40) % Clinch % (Auto) (3-14) % Eos % (Auto) (2-4) % Baso % (Auto) (0-2) % Neut # (Auto) (6586-7182) /uL Lymph # (Auto) (2821-6511) /uL Clinch # (Auto) (0-900) /uL Eos # (Auto) (0-450) /uL Baso # (Auto) (0-100) /uL PT (10.1-12.7) SECONDS INR (0.9-1.3) APTT (26-36) SECONDS Sodium (137-145) mmol/L Potassium (3.4-5.1) mmol/L Chloride (98-107) mmol/L Carbon Dioxide (22-32) mmol/L BUN (9-20) mg/dL Creatinine (0.66-1.25) mg/dL Estimated GFR (>60) mL/min BUN/Creatinine Ratio (6-22) Glucose (80-110) mg/dL Calcium (8.4-10.2) mg/dL Total Bilirubin (0.2-1.3) mg/dL Conjugated Bilirubin (0.0-0.3) md/dL Unconjugated Bilirubin (0.0-1.1) mg/dL AST (17-59) IU/L ALT (<50) IU/L Alkaline Phosphatase (38-126) U/L Total Protein (6.3-8.2) g/dL Albumin (3.5-5.0) g/dL Globulin (1.7-4.1) g/dL Albumin/Globulin Ratio (1.0-2.8) Urine Color Brown Urine Appearance Cloudy Urine pH 5.5 (4.5-8.0) Ur Specific [place] 1.025 (1.000-1.035) Urine Protein 2+ H (Negative) Urine Glucose (UA) Trace H (Negative) g/dL Urine Ketones 1+ H (NEGATIVE) Urine Occult Blood Trace-intact (Negative) Urine Nitrate Positive H (Negative) Urine Bilirubin 3+ H (NEGATIVE) Ur Bilirubin Confirm Positive H (Negative) Urine Urobilinogen 2.0 H (0.2) E.U./dL Ur Leukocyte Esterase Negative (NEGATIVE) Urine RBC 1-5/hpf (0-5/HPF) Urine WBC 5-10/hpf H (0-5/HPF) Ur Squamous Epith Cells 5-10 /hpf H (0-5/HPF) Ur Transition Epith Cell 1-5/hpf (0-5/HPF) Ur Renal Epithelial Cell 1-5/hpf H (0-1/HPF) Amorphous Sediment 1+ Urine Bacteria Few (2-10) H (None) Hyaline Casts 1-5/lpf (None) Urine Mucus 3+ H (Negative) Ur Culture Indicated? Specimen cultured Acetaminophen < 10 (10-30) ug/mL Ethyl Alcohol < 10 ( - 10) mg/dL Hepatitis A IgM Ab Negative (Negative) Hep Bs Antigen Negative (Negative) Hep B Core IgM Ab Negative (Negative) Hepatitis C Antibody Non reactive (Non Reactive) Hep C Ab Signal/Cutoff Comment (.) 09/27/22 09/27/22 09/27/22 Range/Units 03:15 03:15 07:30 WBC (4.5-11.0) X10^3/uL RBC (4.5-5.9) X10^6/uL Hgb 11.4 L (13.5-17.5) g/dL Hct 34.3 L (41-53) % MCV (80-100) fL MCH (26-34) PG MCHC (30-36) % RDW (11.6-14.8) % Plt Count 373 (150-400) X10^3/uL Neut % (Auto) (50-75) % Lymph % (Auto) (25-40) % Clinch % (Auto) (3-14) % Eos % (Auto) (2-4) % Baso % (Auto) (0-2) % Neut # (Auto) (8161-1400) /uL Lymph # (Auto) (5073-3979) /uL Clinch # (Auto) (0-900) /uL Eos # (Auto) (0-450) /uL Baso # (Auto) (0-100) /uL PT (10.1-12.7) SECONDS INR (0.9-1.3) APTT 211 H* D 33 D (26-36) SECONDS Sodium (137-145) mmol/L Potassium (3.4-5.1) mmol/L Chloride (98-107) mmol/L Carbon Dioxide (22-32) mmol/L BUN (9-20) mg/dL Creatinine (0.66-1.25) mg/dL Estimated GFR (>60) mL/min BUN/Creatinine Ratio (6-22) Glucose (80-110) mg/dL Calcium (8.4-10.2) mg/dL Total Bilirubin (0.2-1.3) mg/dL Conjugated Bilirubin (0.0-0.3) md/dL Unconjugated Bilirubin (0.0-1.1) mg/dL AST (17-59) IU/L ALT (<50) IU/L Alkaline Phosphatase (38-126) U/L Total Protein (6.3-8.2) g/dL Albumin (3.5-5.0) g/dL Globulin (1.7-4.1) g/dL Albumin/Globulin Ratio (1.0-2.8) Urine Color Urine Appearance Urine pH (4.5-8.0) Ur Specific [place] (1.000-1.035) Urine Protein (Negative) Urine Glucose (UA) (Negative) g/dL Urine Ketones (NEGATIVE) Urine Occult Blood (Negative) Urine Nitrate (Negative) Urine Bilirubin (NEGATIVE) Ur Bilirubin Confirm (Negative) Urine Urobilinogen (0.2) E.U./dL Ur Leukocyte Esterase (NEGATIVE) Urine RBC (0-5/HPF) Urine WBC (0-5/HPF) Ur Squamous Epith Cells (0-5/HPF) Ur Transition Epith Cell (0-5/HPF) Ur Renal Epithelial Cell (0-1/HPF) Amorphous Sediment Urine Bacteria (None) Hyaline Casts (None) Urine Mucus (Negative) Ur Culture Indicated? Acetaminophen (10-30) ug/mL Ethyl Alcohol ( - 10) mg/dL Hepatitis A IgM Ab (Negative) Hep Bs Antigen (Negative) Hep B Core IgM Ab (Negative) Hepatitis C Antibody (Non Reactive) Hep C Ab Signal/Cutoff (.) [facility] Narrative Medical decision making narrative: Patient has minimal abdominal pain today. He is jaundiced. His LFTs are elevated. Bilirubin is elevated. Does not have a leukocytosis. 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 He does have a nitrite positive urine but has no UTI symptoms. Given his other symptoms today we will wait for urine culture before treating with any antibiotics. Patient does have a history of AFib. He was tachycardic today but not hypotensive. He is also on rivaroxaban. His last dose of rivaroxaban was yesterday (09/25/2022). He is also on metoprolol. He states that was just recently increased to 100 mg a day. He was given a dose of metoprolol however we will hold on his rivaroxaban. Waiting for call from GI to discuss further workup to include discharge home with a follow-up as an outpatient versus transfer for further evaluation such as stent placement. There currently no beds available at any facility in [facility]. Care turned over to Dr. Mahajan to follow-up and disposition. [1800] (Keyshawn) Patient received in sign out from [Kelly]. I have reviewed the clinical course and performed an independent history and physical exam. 1849 - call from [facility] (Dr. Sierra). Discussed case. Recommend transfer, will likely need intervention. No ABX unless fever or elevated WBCs. Will defer heparin decision to medicine 1909 - call from [facility] (Dr. Newman). Discussed clinical course and agrees to accept patient in transfer. Recommends holding Xarelto. Addition of heparin. Pending bed availability <Marlon Mahajan, DO - Last Filed: 09/27/22 06:36> Critical Care Time Critical Care Time: Yes Total Critical Care Time: 45 Attestation: Critical Care Time [45] minutes: Critical care time is separate from other billable procedures. This critical care time includes consultation with family and other consulting doctors, review of records, and interpretation of data from labs, EKGs, imaging, etc. Discharge Plan Departure Patient Disposition: [facility] Clinical Impression: Gallbladder mass, Biliary obstruction, Atrial fibrillation Prescriptions: No Action Xarelto 20 mg tablet 20 mg PO DAILY Patient Comments: Pt takes at 1530 daily metoprolol succinate 100 mg tablet extended release 24 hr 100 mg PO DAILY Patient Comments: Pt takes at 1530 daily Referrals: Ranjeet Ocampo DO [Primary Care Provider] -
[2022-09-26 14:16] LABS: INR 1.4 (0.9-1.3); Prothrombin Time 16.6 SECONDS (10.1-12.7)
[2022-09-26 14:18] LABS: PTT Partial Thromboplastin Tim 31 SECONDS (26-36)
[2022-09-26 14:20] LABS: Acetaminophen < 10 ug/mL (10-30); Alanine Aminotransferase 298 IU/L (<50); Albumin 4.1 g/dL (3.5-5.0); Alkaline Phosphatase 615 U/L (38-126); Aspartate Aminotransferase 236 IU/L (17-59); BUN Creatinine Ratio 23.2 (6-22); Bilirubin Total 8.5 mg/dL (0.2-1.3); Bilirubin Unconjugated 1.1 mg/dL (0.0-1.1); Blood Urea Nitrogen 19 mg/dL (9-20); Calcium 9.7 mg/dL (8.4-10.2); Carbon Dioxide 24 mmol/L (22-32); Chloride 95 mmol/L (98-107); Estimated Glomerular Filt Rate > 60 mL/min (>60); Ethanol (ETOH) < 10 mg/dL; Globulin 4.3 g/dL (1.7-4.1); Glucose 92 mg/dL (80-110); HEMOLYSIS < 15 (0-50); Sodium 131 mmol/L (137-145); Total Protein 8.4 g/dL (6.3-8.2)
[2022-09-26 14:56] LABS: Appearance Urine UA CLOUDY; Bilirubin Urine UA 3+ (NEGATIVE); Color Urine UA BROWN; Glucose Urine UA TRACE g/dL (Negative); Ketones Urine UA 1+ (NEGATIVE); Leukocyte Esterase Urine UA NEGATIVE (NEGATIVE); Nitrite Urine UA POSITIVE (Negative); Occult Blood Urine UA TRACE-INTACT (Negative); Protein Urine UA 2+ (Negative); Specific Gravity Urine UA 1.025 (1.000-1.035); pH Urine UA 5.5 (4.5-8.0)
[2022-09-26 15:04] LABS: Amorphous Sediment Urine 1+; Bacteria Urine Few (2-10); Culture Indicated Urine Specimen Cultured; Hyaline Casts Urine 1-5/LPF; Ictotest Urine Positive (Negative); Mucus Urine 3+ (Negative); RBC Urine 1-5/HPF (0-5/HPF); Renal Epithelial Cells Urine 1-5/HPF (0-1/HPF); Squamous Epithelial Cell Urine 5-10 /HPF (0-5/HPF); Transitional Epi Cells Urine 1-5/HPF (0-5/HPF); WBC Urine 5-10/HPF (0-5/HPF)
--- NOTE | 2022-09-26 15:29 | DI.CT.S_ITS ---
PROCEDURE: CT ABDOMEN PELVIS W CON INDICATIONS: possible liver abscess seen on RUQ US TECHNIQUE: After the administration of intravenous contrast, axial sections acquired from the lung bases to the pubic symphysis. Coronal and sagittal reformats were performed. For radiation dose reduction, the following was used: automated exposure control, adjustment of mA and/or kV according to patient size. COMPARISON: None. FINDINGS: Image quality: Excellent. Lung bases: Lung bases are clear. Heart size is normal. 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 The bile ducts are severely dilated with the common bile duct measuring 1.8 cm in diameter. There is debris or tumor in the common bile duct near the ampulla. The portal vein and hepatic veins are patent. Pancreas: The mass appears to involve the pancreatic head. The pancreatic body and tail have a normal appearance. Mild pancreatic ductal dilatation. Spleen: Normal size. There are no masses. Adrenals: No hypertrophy or nodules. Kidneys: No obstructive calculus or hydronephrosis. No solid mass. 4 centimeter cyst of the inferior pole of the left kidney. Peritoneum and bowel: The distal esophagus is normal. The stomach is normal. The 2nd portion of the duodenum is likely partially encased by the tumor described above. The small bowel has a normal caliber and appearance. The large bowel has diverticulosis without evidence of diverticulitis. No free fluid or air. Nodes and vessels: No retroperitoneal or mesenteric adenopathy by size criteria. The aorta has atherosclerosis with no aneurysmal dilatation. Miscellaneous: Fat containing inguinal hernias bilaterally. PELVIS: Genitourinary: The bladder has no wall thickening or mass. No bladder calcifications. Bones: No suspicious bony lesions. No vertebral body compression fractures. 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 No distal metastatic disease is identified. Dictated by: Goldy Tyler M.D. on 09/26/2022 at 15:20 Approved by: Goldy Tyler M.D. on 09/26/2022 at 15:29
--- NOTE | 2022-09-26 17:29 | PC.NURSE ---
Called [facility], [facility], , [facility] and [facility]. All have no beds. Discussed w/ Dr. Mendoza who requested to speak with GI to consult. [facility] . Called [facility] transfer center, gave information as well as faxed face sheet. Updated Fr. Mendoza. Awaiting call back
[2022-09-26] MEDS: METOPROLOL ER 50 MG TABLET 100 MG PO (17:55)
[2022-09-26] MEDS: SODIUM CHLORIDE 0.9% 1,000 ML 125 ML IV (21:03)
[2022-09-26] MEDS: HEPARIN DRIP 25,000 UNIT/500 ML IV.SOLN 18.049 UNIT IV (21:05)
[2022-09-27] VITALS (25 sets, daily range): BP systolic 103–157; BP diastolic 64–79; PULSE 89–141; RESP 18–28; TEMP 36.4; O2SAT 94–98
[2022-09-27 03:26] LABS: Hematocrit 34.3 % (41-53); Hemoglobin 11.4 g/dL (13.5-17.5); Platelet Count 373 X10^3/uL (150-400)
[2022-09-27 03:43] LABS: PTT Partial Thromboplastin Tim 211 SECONDS (26-36)
[2022-09-27] MEDS: SODIUM CHLORIDE 0.9% 1,000 ML 125 ML IV (04:48)
[2022-09-27] MEDS: METOPROLOL IR 25 MG TABLET 50 MG PO (05:31)
--- NOTE | 2022-09-27 05:35 | PC.NURSE ---
Provider notified of heart rate in the 120s, new orders for PO metoprolol received.
[2022-09-27] MEDS: METOPROLOL TARTRATE 5 MG/5 ML INJ IV (06:32)
[2022-09-27 07:10] LABS: HBsAg Screen Negative (Negative); Hepatitis A Antibody IgM Negative (Negative); Hepatitis B Core Antibody IgM Negative (Negative); Hepatitis C Antibody Non Reactive (Non Reactive)
[2022-09-27 07:46] LABS: PTT Partial Thromboplastin Tim 33 SECONDS (26-36)
[2022-09-27] MEDS: HEPARIN 5,000 UNIT/ML VIAL 3000 UNIT IV (08:08)
== END 2022-09-27 08:42 | disposition short-term general hospital (02) ==
PROVIDERS: Emergency Medicine; Emergency Provider Emergency Medicine; PCP Family Medicine
DX: K82.8 Other specified diseases of gallbladder (principal); K83.1 Obstruction of bile duct; I48.91 Unspecified atrial fibrillation; R00.0 Tachycardia, unspecified; R11.0 Nausea
CPT/HCPCS: 36415; 74177; 76705; 80048; 80074; 80076; 80320; 80329; 81001; 85014; 85018; 85025; 85049; 85610; 85730; 87086; 93005; 93010; 96365; 96366; 96375; 99285; 99291; G0480; J1644; Q9967